=== PATIENT | male | born 1940 | race Caucasian/White ===

== ENCOUNTER 2017-03-25 15:26 | Emergency (ER) | payer OTHER ==
[~2017-03-25] VITALS: Ht 167.6 cm; Wt 88.6 kg
[~2017-03-25 15:26] MED LIST: ACIDOPHILUS1 EACH PO; ALAVERT10 M1 PO; ALER-CAP25 M2 PO; ASPIR 8181 M1 PO; Ativan PO; Benadryl PO; CALTRATE 6001 TABLET PO; CELEBREX200 MG PO; FLEXERIL10 MG PO; GLUCOSAMINE 1,1 EACH PO; LORAZEPAM1 MG PO; Lortab 7.5/500 PO; Lotrel 5/20 PO; MELATONIN3 MG PO; Melatonin PO; OMEGA-31000 M1 PO; Oscal 500 w/Vitamin PO; PRAVACHOL40 MG PO; Phenergan PO; Pravachol PO; RITALIN LA40 MG PO; Remeron PO; Ritalin PO; TRAMADOL HCL50 MG PO; VITAMIN D2000 INTUN PO; Vicodin,Norco 5/325 PO; ZANAFLEX4 MG PO
[2017-03-25 16:25] LABS: HEMATOCRIT 47.9 % (38.0-50.0); MCH 29.3 PG (29.0-34.0); MCHC 32.6 G/DL (30.0-36.0); MEAN PLAT.VOLUME 10.5 uM^3 (9.0-12.4); PLATELET COUNT 181 K/uL (156-360); RBC DIS.WIDTH-SD 42.7 % (39-53); RED BLOOD COUNT 5.32 M/uL (4.00-5.50); WHITE BLOOD COUNT 5.6 K/uL (4.1-10.2)
[2017-03-25 16:40] LABS: CHLORIDE 106 mEq/L (99-109); POTASSIUM 4.1 mEq/L (3.7-5.4); SODIUM 141 mEq/L (136-147)
[2017-03-25 16:41] LABS: GLUCOSE 114 mg/dL (70-99)
[2017-03-25 16:43] LABS: ANION GAP 13 MEQ/L (2-14)
[2017-03-25 16:45] LABS: GFR ESTIMATE (CALCULATED) > 59 mL/min/
[2017-03-25 16:46] LABS: UREA NITROGEN (BUN) 26 mg/dL (9-23)
[2017-03-25 16:49] LABS: TROP-I INTERPRETATION NEGATIVE; TROPONIN-I < 0.01 ng/mL (0.0-0.30)
[2017-03-25 19:25] LABS: TROP-I INTERPRETATION NEGATIVE; TROPONIN-I < 0.01 ng/mL (0.0-0.30)
[2017-03-25 20:40] VITALS: BP 148/90
== END 2017-03-25 20:40 | disposition home or self-care (01) ==
LOC: EME 15:26
PROVIDERS: Physician Assistant
DX: R07.9 Chest pain, unspecified (principal); R68.84 Jaw pain; I10 Essential (primary) hypertension; E78.5 Hyperlipidemia, unspecified; Z85.46 Personal history of malignant neoplasm of prostate; Z87.891 Personal history of nicotine dependence
CPT/HCPCS: 71020; 80048; 84484; 85027; 93005; 99281; 99285